=== PATIENT | female | born 1985 | race Caucasian/White ===

== ENCOUNTER 2019-02-28 17:20 | Emergency (ER) | payer OTHER, MEDICAID ==
[~2019-02-28] VITALS: Ht 177.8 cm; Wt 122.5 kg
[~2019-02-28 17:20] MED LIST: ACETAMINOPHEN-1 EAC1 PO; ALBUTEROL2.5 MG/31 INH; AMBIEN 5 MG TABL5 M1; AMBIEN 5 MG TABL5 M1 PO; AUGMENTIN 500-1 EACH PO; BACTRIM DS TAB1 EAC1 PO; CLEOCIN HCL150 M1 PO; CLEOCIN HCL150 MG PO; DEPO-ESTRAD5 MG/1 ML; DEPO-PROVE150 MG/11 IM; HYDROCODON-ACE1 EAC7 PO; HYDROCODONE-APA1 TA1 PO; IBUPROFEN 800800 M1 PO; NORCO 5-325 TA1 EACH PO; PENICILLIN V P500 MG PO; PREDNISONE 20 M20 MG PO; ROBAXIN500 MG PO; VENTOLIN HFA 1818 GM INH; ZOFRAN4 MG PO; ZPAK PO
[2019-02-28] MEDS ORDERED: METFORMIN HCL500 MG PO (17:30)
[2019-02-28] MEDS ORDERED: STELARA45 MG/0.1 SUBQ (17:30)
[2019-02-28] MEDS ORDERED: LIPITOR40 MG PO (17:31)
[2019-02-28] MEDS ORDERED: [UNRECOGNIZED DRUG - OTHER] (17:31)
[2019-02-28] MEDS ORDERED: GLUCOTROL5 MG PO (17:31)
[2019-02-28] MEDS ORDERED: LISINOPRIL10 MG PO (17:31)
[2019-02-28] MEDS ORDERED: IBUPROFEN 800800 M1 PO (18:14)
[2019-02-28 18:23] VITALS: BP 115/76
== END 2019-02-28 18:24 | disposition home or self-care (01) ==
LOC: M.ERS 17:20
DX: M79.671 Pain in right foot (principal); G47.00 Insomnia, unspecified; Z90.49 Acquired absence of other specified parts of digestive tract; Z90.710 Acquired absence of both cervix and uterus; Z77.22 Contact with and (suspected) exposure to environmental tobacco smoke (acute) (chronic); Z88.8 Allergy status to other drugs, medicaments and biological substances